=== PATIENT | female | born 1960 | race African-American/Black ===

== ENCOUNTER 2017-12-25 11:27 | Inpatient (IN) | payer OTHER ==
[2017-12-25 12:21] VITALS: BMI 34.5
--- NOTE | 2017-12-25 14:05 | HP ---
Admission [facility] Chief Complaint: I WANT TO GO TO REHAB Allergies/Adverse Reactions: Allergies Allergy/AdvReac Type Severity Reaction Status Date / Time tomato Allergy Severe Hives Verified 12/25/17 13:04 ORANGE JUICE Allergy Severe Hives Uncoded 12/25/17 13:04 NKDA Allergy Uncoded 12/25/17 13:24 History of Present Illness: 57 YEARS OLD FEMALE WITH LONG HISTORY OF ALCOHOL NICOTINE DEPENDENCE HAS ASTHMA AND BORDERLINE HYPERTENSION RIGHT LEG TRAUMA 2013 AMBULATE WITH CANE AT HOME IS ADMITTED TO REHAB Exam Limitations: No Limitations - Ebola screening Have you traveled outside of the country in the last 21 days: No Have you had contact with anyone from an Ebola affected area: No Have you been sick,other than usual withdrawal symptoms: No Do you have a fever: No - Review of Systems Constitutional: Changes in sleep, Weight Stable EENT: reports: Blurred Vision (EYE GLASSES BROKE) Respiratory: reports: SOB with Exertion, Productive cough Cardiac: reports: No Symptoms Reported GI: reports: Indigestion : reports: No Symptoms Reported Musculoskeletal: reports: Joint Pain (RIGHT LEG), Muscle Pain (RIGHT LEG) Integumentary: reports: Change in Color (ECZEMA) Neuro: reports: No Symptoms reported Endocrine: reports: No Symptoms Reported Hematology: reports: No Symptoms Reported Psychiatric: reports: Judgement Intact, Mood/Affect Appropiate, Orientated x3 Other Systems: Reviewed and Negative Patient History - Patient Medical History Hx Anemia: No Hx Asthma: Yes Hx Chronic Obstructive Pulmonary Disease (COPD): No Hx Cancer: No Hx Cardiac Disorders: No Hx Congestive Heart Failure: No Hx Hypertension: Yes Hx Hypercholesterolemia: No Hx Pacemaker: No HX Cerebrovascular Accident: No Hx Seizures: No Hx Dementia: No Hx Diabetes: No Hx Gastrointestinal Disorders: Yes (acid reflux) Hx Liver Disease: No Hx Genitourinary Disorders: No Hx Sexually Transmitted Disorders: No Hx Renal Disease (ESRD): No Hx Thyroid Disease: No Hx Human Immunodeficiency Virus (HIV): No Hx Hepatitis C: No Hx Depression: Yes Hx Suicide Attempt: Yes (pill overdose in 2014) Hx Bipolar Disorder: No Hx Schizophrenia: No - Patient Surgical History Past Surgical History: Yes Hx Neurologic Surgery: No Hx Cataract Extraction: No Hx Cardiac Surgery: No Hx Lung Surgery: No Hx Breast Surgery: No Hx Breast Biopsy: No Hx Abdominal Surgery: No Hx Appendectomy: No Hx Cholecystectomy: No Hx Genitourinary Surgery: No Hx Section: No Hx Orthopedic Surgery: Yes (fx, right knee in 2013) Hx Hysterectomy: No Anesthesia Reaction: No - PPD History Previous Implant?: Yes Documented Results: Negative w/o proof Implanted On Prior R Admission?: No PPD to be Administered?: Yes - Reproductive History Patient is a Female of Child Bearing Age (11 -55 yrs old): Yes Last Menstrual Period: 12/25/16 Patient : No - Smoking Cessation Smoking history: Current every day smoker Have you smoked in the past 12 months: Yes Aproximately how many cigarettes per day: 10 Hx Chewing Tobacco Use: No Initiated information on smoking cessation: Yes 'Breaking Loose' booklet given: 12/25/17 - Substance & Tx. History Hx Alcohol Use: Yes Hx Substance Use: No Substance Use Type: Alcohol Hx Substance Use Treatment: Yes ([facility] 11/2017 DETOX COMPLETED) - Substances Abused Alcohol-vodka Route: Oral Frequency: Daily Amount used: 1/4 gal. Age of first use: 20 Date of Last Use: 12/17/17 Family Disease History - Family Disease History Family Disease History: Diabetes: Brother, Sister, Heart Disease: Brother, Sister, CA: Mother (), Respiratory: Brother, Sister, Other: Father ( /NO CONTACT), Mother Admission Physical Exam S - Vital Signs Vital Signs: Vital Signs - 24 hr 12/25/17 12:14 Temperature 98.9 F Pulse Rate 93 H Respiratory 18 Rate Blood Pressure 131/83 - Physical General Appearance: Yes: Appropriately Dressed, Obese HEENTM: Yes: Hearing grossly Normal, Normocephalic, Normal Voice Respiratory: Yes: Chest Non-Tender, No Respiratory Distress, No Accessory Muscle Use, Wheezing Neck: Yes: Supple, Trachea in good position Breast: Yes: Breasts Symetrical, No Discharge Cardiology: Yes: Regular Rhythm, S1, S2, Tachycardia Abdominal: Yes: Normal Bowel Sounds, Non Tender, Flat Genitourinary: Yes: Within Normal Limits Back: Yes: Normal Inspection Musculoskeletal: Yes: Gait Steady, Muscle Pain (RIGHT LEG) Extremities: Yes: Normal Inspection, Normal Range of Motion, Non-Tender Neurological: Yes: Fully Oriented, Alert, Motor Strength 5/5, Normal Response, Depressed Affect Integumentary: Yes: Warm, Other (ECZEMA) Lymphatic: Yes: Within Normal Limits - Diagnostic (1) Alcohol dependence with uncomplicated withdrawal Current Visit: Yes Status: Acute (2) Nicotine dependence Current Visit: Yes Status: Acute Qualifiers: Nicotine product type: cigarettes Substance use status: in withdrawal Qualified Code(s): F17.213 - Nicotine dependence, cigarettes, with withdrawal (3) Ambulates with cane Current Visit: Yes Status: Chronic (4) Asthma Current Visit: Yes Status: Chronic Qualifiers: Asthma severity: mild Asthma persistence: intermittent Asthma complication type: with status asthmaticus Qualified Code(s): J45.22 - Mild intermittent asthma with status asthmaticus (5) GERD (gastroesophageal reflux disease) Current Visit: Yes Status: Chronic Qualifiers: Esophagitis presence: without esophagitis Qualified Code(s): K21.9 - Gastro -esophageal reflux disease without esophagitis (6) Eczema Current Visit: Yes Status: Chronic Qualifiers: Eczema type: flexural Qualified Code(s): L20.82 - Flexural eczema Cleared for Admission [facility] - Detox or Rehab S Level of Care: Observation Bed Detox Regimen/Protocol: Not Applicable S Breath Alcohol Content Breath Alcohol Content: 0 Urine Pregancy Test - Result Urine Test Results: Negative- NO Line Present Urine Drug Screen - Results Drug Screen Negative: No Urine Drug Screen Results: BZO-Benzodiazepines, TCA-Tricyclic Antidepress
[2017-12-25] MEDS ORDERED: P-EPHED 60MG/TRIPROLIDI 2.5MG TABLET PO PRN (14:07)
[2017-12-25] MEDS ORDERED: MENTHOL/PHENOL 1 EACH UD MM PRN (14:07)
[2017-12-25] MEDS ORDERED: guaiFENesin/D-METHORPHAN HB 10 ML UNIT-DOSE CUPS PO PRN (14:07)
[2017-12-25] MEDS ORDERED: NICOTINE POLACRILEX 2 MG GUM BUC PRN (14:07)
[2017-12-25] MEDS ORDERED: MAGNESIUM CITRATE 300 ML BOTTLE PO PRN (14:07)
[2017-12-25] MEDS ORDERED: MAGNESIUM HYDROX 2400MG/30ML ORAL SUSPENSION 30 ML CUP PO PRN (14:07)
[2017-12-25] MEDS ORDERED: LOPERAMIDE HCL 2 MG CAPSULE PO PRN (14:07)
[2017-12-25] MEDS ORDERED: ALBUTEROL SO4 8 GM HFA INHALER IH PRN (14:09)
--- NOTE | 2017-12-25 14:22 | HP ---
Admission [facility] Allergies/Adverse Reactions: Allergies Allergy/AdvReac Type Severity Reaction Status Date / Time tomato Allergy Severe Hives Verified 12/25/17 13:04 ORANGE JUICE Allergy Severe Hives Uncoded 12/25/17 13:04 NKDA Allergy Uncoded 12/25/17 13:24 - Ebola screening Have you traveled outside of the country in the last 21 days: No Have you had contact with anyone from an Ebola affected area: No Have you been sick,other than usual withdrawal symptoms: No Do you have a fever: No Patient History - Patient Medical History Hx Anemia: No Hx Asthma: Yes Hx Chronic Obstructive Pulmonary Disease (COPD): No Hx Cancer: No Hx Cardiac Disorders: No Hx Congestive Heart Failure: No Hx Hypertension: Yes Hx Hypercholesterolemia: No Hx Pacemaker: No HX Cerebrovascular Accident: No Hx Seizures: No Hx Dementia: No Hx Diabetes: No Hx Gastrointestinal Disorders: Yes (acid reflux) Hx Liver Disease: No Hx Genitourinary Disorders: No Hx Sexually Transmitted Disorders: No Hx Renal Disease (ESRD): No Hx Thyroid Disease: No Hx Human Immunodeficiency Virus (HIV): No Hx Hepatitis C: No Hx Depression: Yes Hx Suicide Attempt: Yes (pill overdose in 2014) Hx Bipolar Disorder: No Hx Schizophrenia: No - Patient Surgical History Past Surgical History: Yes Hx Neurologic Surgery: No Hx Cataract Extraction: No Hx Cardiac Surgery: No Hx Lung Surgery: No Hx Breast Surgery: No Hx Breast Biopsy: No Hx Abdominal Surgery: No Hx Appendectomy: No Hx Cholecystectomy: No Hx Genitourinary Surgery: No Hx Section: No Hx Orthopedic Surgery: Yes (fx, right knee in 2012) Hx Hysterectomy: No Anesthesia Reaction: No - PPD History Previous Implant?: Yes Documented Results: Negative w/o proof Implanted On Prior [facility] Admission?: No - Reproductive History Last Menstrual Period: 12/25/16 Patient : No - Smoking Cessation Smoking history: Current every day smoker Have you smoked in the past 12 months: Yes Aproximately how many cigarettes per day: 10 Hx Chewing Tobacco Use: No Initiated information on smoking cessation: Yes 'Breaking Loose' booklet given: 12/25/17 - Substances Abused Alcohol-vodka Route: Oral Frequency: Daily Amount used: 1/4 gal. Age of first use: 20 Date of Last Use: 12/17/17 Family Disease History - Family Disease History Family Disease History: Diabetes: Brother, Sister, Heart Disease: Brother, Sister, CA: Mother (), Respiratory: Brother, Sister, Other: Father ( /NO CONTACT), Mother Admission Physical Exam [facility] - Vital Signs Vital Signs: Vital Signs - 24 hr 12/25/17 12:14 Temperature 98.9 F Pulse Rate 93 H Respiratory 18 Rate Blood Pressure 131/83 - Diagnostic (1) Alcohol dependence with uncomplicated withdrawal Current Visit: Yes Status: Acute (2) Nicotine dependence Current Visit: Yes Status: Acute Qualifiers: Nicotine product type: cigarettes Substance use status: in withdrawal Qualified Code(s): F17.213 - Nicotine dependence, cigarettes, with withdrawal (3) Ambulates with cane Current Visit: Yes Status: Chronic (4) Asthma Current Visit: Yes Status: Chronic Qualifiers: Asthma severity: mild Asthma persistence: intermittent Asthma complication type: with status asthmaticus Qualified Code(s): J45.22 - Mild intermittent asthma with status asthmaticus (5) GERD (gastroesophageal reflux disease) Current Visit: Yes Status: Chronic Qualifiers: Esophagitis presence: without esophagitis Qualified Code(s): K21.9 - Gastro -esophageal reflux disease without esophagitis (6) Eczema Current Visit: Yes Status: Chronic Qualifiers: Eczema type: flexural Qualified Code(s): L20.82 - Flexural eczema [facility] Breath Alcohol Content Breath Alcohol Content: 0 Urine Pregancy Test - Result Urine Test Results: Negative- NO Line Present Urine Drug Screen - Results Drug Screen Negative: No Urine Drug Screen Results: BZO-Benzodiazepines, TCA-Tricyclic Antidepress Inpatient Rehab Admission - Initial Determination Are CD services needed?: Yes Free of communicable disease: Yes Not in need of hospitalization: Yes - Rehab Admission Criteria Previous failed treatment: Yes Poor recovery environment: Yes Comorbidities: Yes Lacks judgement: No Patient is meeting Inpatient Rehab admission criteria:: Yes
[2017-12-25 17:19] LABS: HEMATOCRIT 48.1 % (32.4-45.2); MCHC 33.2 g/dl (32.0-36.0); MEAN CELL VOLUME 87.5 fl (80-96); MEAN PLT VOLUME 10.2 fl (7.5-11.1); PLATELET COUNT 238 K/MM3 (134-434); RDW 16.4 % (11.6-15.6); WHITE BLOOD COUNT 7.9 K/mm3 (4.0-10.0)
[2017-12-25 17:43] LABS: ALBUMIN 4.1 g/dl (3.4-5.0); ALK PHOS 130 U/L (45-117); ANION GAP 9 (8-16); BILIRUBIN,TOTAL 0.4 mg/dL (0.2-1.0); BLOOD UREA NITROGEN 11 mg/dL (7-18); CALCIUM 10.1 mg/dL (8.5-10.1); CHLORIDE 104 mmol/L (98-107); CO2 27 mmol/L (21-32); CREATININE 0.9 mg/dL (0.55-1.02); GLUCOSE,RANDOM 134 mg/dL (74-106); POTASSIUM 5.2 mmol/L (3.5-5.1); SGOT/AST 19 U/L (15-37); SGPT/ALT 38 U/L (12-78); SODIUM 140 mmol/L (136-145); TOT PROT 7.8 g/dl (6.4-8.2)
[2017-12-25] MEDS ORDERED: TUBERCULIN PPD 5 TU/0.1ML VIAL ID ONE (19:23)
[2017-12-25] MEDS: TRIAMCINOLONE ACET 0.1% OINT 15 GM TUBE TP SCH ×2 (19:30→22:15)
[2017-12-25] MEDS ORDERED: diphenhydrAMINE HCL 25 MG CAPSULE (FP) PO PRN (21:37)
[2017-12-25] MEDS: NICOTINE 14 MG/24 HOURS TOPICAL PATCH TD SCH (22:09)
[2017-12-25] MEDS: ARIPiprazole 5 MG TABLET (FP) PO SCH (22:12)
[2017-12-25] MEDS: THIAMINE HCL 100 MG TABLET (FP) PO SCH (22:13)
[2017-12-25] MEDS: ACETAMINOPHEN 325 MG TABLET (FP) PO PRN (22:13)
[2017-12-25] MEDS: RANITIDINE HCL 150 MG TABLET (FP) PO SCH (22:13)
[2017-12-26] MEDS: MELATONIN 5 MG TABLETS PO PRN (02:03)
[2017-12-26] MEDS: TRIAMCINOLONE ACET 0.1% OINT 15 GM TUBE TP SCH ×4 (09:39→22:03)
[2017-12-26] MEDS: NICOTINE 14 MG/24 HOURS TOPICAL PATCH TD SCH (09:39)
[2017-12-26] MEDS: PRENATAL VITAMINS W/ FOLIC ACID TABLET (FP) PO SCH (09:39)
[2017-12-26] MEDS: RANITIDINE HCL 150 MG TABLET (FP) PO SCH ×2 (09:40→22:02)
[2017-12-26] MEDS ORDERED: PT OWN MED DRAWER 7, Y5N ONE (13:05)
--- NOTE | 2017-12-26 14:17 | PN ---
[facility] Progress Note Note: Vital Signs Temperature 97.6 F 12/26/17 07:10 Pulse Rate 97 H 12/26/17 09:40 Respiratory Rate 18 12/26/17 07:10 Blood Pressure 121/86 12/26/17 09:40 O2 Sat by Pulse Oximetry (%) Laboratory Last Values WBC 7.9 K/mm3 (4.0-10.0) 12/25/17 15:00 RBC 5.50 M/mm3 (3.60-5.2) H 12/25/17 15:00 Hgb 16.0 GM/dL (10.7-15.3) H 12/25/17 15:00 Hct 48.1 % (32.4-45.2) H 12/25/17 15:00 MCV 87.5 fl (80-96) 12/25/17 15:00 MCH 29.0 pg (25.7-33.7) 12/25/17 15:00 MCHC 33.2 g/dl (32.0-36.0) 12/25/17 15:00 RDW 16.4 % (11.6-15.6) H 12/25/17 15:00 Plt Count 238 K/MM3 (134-434) 12/25/17 15:00 MPV 10.2 fl (7.5-11.1) 12/25/17 15:00 Sodium 140 mmol/L (136-145) 12/25/17 15:00 Potassium 5.2 mmol/L (3.5-5.1) H 12/25/17 15:00 Chloride 104 mmol/L (98-107) 12/25/17 15:00 Carbon Dioxide 27 mmol/L (21-32) 12/25/17 15:00 Anion Gap 9 (8-16) 12/25/17 15:00 BUN 11 mg/dL (7-18) 12/25/17 15:00 Creatinine 0.9 mg/dL (0.55-1.02) 12/25/17 15:00 Creat Clearance w eGFR > 60 (>60) 12/25/17 15:00 Random Glucose 134 mg/dL (74-106) H 12/25/17 15:00 Calcium 10.1 mg/dL (8.5-10.1) 12/25/17 15:00 Total Bilirubin 0.4 mg/dL (0.2-1.0) 12/25/17 15:00 AST 19 U/L (15-37) 12/25/17 15:00 ALT 38 U/L (12-78) 12/25/17 15:00 Alkaline Phosphatase 130 U/L (45-117) H 12/25/17 15:00 Total Protein 7.8 g/dl (6.4-8.2) 12/25/17 15:00 Albumin 4.1 g/dl (3.4-5.0) 12/25/17 15:00 RPR Titer Nonreactive (NONREACTIVE) 12/25/17 15:00 mild K+ elevation asymptomatic repeat K+ in AM continue to monitor
[2017-12-26 15:40] LABS: URINE APPEARANCE CLEAR; URINE BILIRUBIN NEGATIVE (<2.0 mg/dL); URINE COLOR LTYELLOW; URINE GLUCOSE (UA) 2+ (NEGATIVE); URINE KETONE NEGATIVE (NEGATIVE); URINE LEUK ESTERASE NEGATIVE (NEGATIVE); URINE NITRITE NEGATIVE (NEGATIVE); URINE PROTEIN NEGATIVE (NEGATIVE); URINE UROBILINOGEN NEGATIVE mg/dL (0.2-1.0)
--- NOTE | 2017-12-26 17:06 | EKG ---
Test Reason : Blood Pressure : / mmHG Vent. Rate : 103 BPM Atrial Rate : 103 BPM P-R Int : 134 ms QRS Dur : 074 ms QT Int : 356 ms P-R-T Axes : 052 020 040 degrees QTc Int : 466 ms POOR DATA QUALITY, INTERPRETATION MAY BE ADVERSELY AFFECTED SINUS TACHYCARDIA POSSIBLE LEFT ATRIAL ENLARGEMENT BORDERLINE ECG NO PREVIOUS ECGS AVAILABLE Confirmed by MD Rowena, Michoacano ([id number]) on 12/26/2017 5:06:31 PM Referred By: Confirmed By:Michoacano Guaman MD
[2017-12-26] MEDS: THIAMINE HCL 100 MG TABLET (FP) PO SCH (22:02)
[2017-12-26] MEDS: ARIPiprazole 5 MG TABLET (FP) PO SCH (22:02)
[2017-12-26] MEDS: MAG HYDROX/AL HYDROX/SIMETH 30 ML UNIT-DOSE CUP PO PRN (22:03)
[2017-12-27] MEDS: TRIAMCINOLONE ACET 0.1% OINT 15 GM TUBE TP SCH ×4 (09:54→21:13)
[2017-12-27] MEDS: NICOTINE 14 MG/24 HOURS TOPICAL PATCH TD SCH (09:55)
[2017-12-27] MEDS: RANITIDINE HCL 150 MG TABLET (FP) PO SCH ×2 (09:55→21:12)
[2017-12-27] MEDS: PRENATAL VITAMINS W/ FOLIC ACID TABLET (FP) PO SCH (09:55)
--- NOTE | 2017-12-27 10:47 | EKG ---
Test Reason : Blood Pressure : / mmHG Vent. Rate : 091 BPM Atrial Rate : 091 BPM P-R Int : 154 ms QRS Dur : 082 ms QT Int : 372 ms P-R-T Axes : 058 019 044 degrees QTc Int : 457 ms NORMAL SINUS RHYTHM CANNOT RULE OUT ANTERIOR INFARCT , AGE UNDETERMINED ABNORMAL ECG WHEN COMPARED WITH ECG OF 25-DEC-2017 19:05, NO SIGNIFICANT CHANGE WAS FOUND Confirmed by CORDELL DUONG, LEAH ([id number]) on 12/27/2017 10:46:39 AM Referred By: Confirmed By:LEAH LANDA MD
--- NOTE | 2017-12-27 13:18 | PN ---
[facility] Progress Note Note: Vital Signs Temperature 97.5 F L 12/27/17 07:34 Pulse Rate 98 H 12/27/17 07:34 Respiratory Rate 18 12/27/17 07:34 Blood Pressure 121/79 12/27/17 07:34 O2 Sat by Pulse Oximetry (%) Laboratory Last Values WBC 7.9 K/mm3 (4.0-10.0) 12/25/17 15:00 RBC 5.50 M/mm3 (3.60-5.2) H 12/25/17 15:00 Hgb 16.0 GM/dL (10.7-15.3) H 12/25/17 15:00 Hct 48.1 % (32.4-45.2) H 12/25/17 15:00 MCV 87.5 fl (80-96) 12/25/17 15:00 MCH 29.0 pg (25.7-33.7) 12/25/17 15:00 MCHC 33.2 g/dl (32.0-36.0) 12/25/17 15:00 RDW 16.4 % (11.6-15.6) H 12/25/17 15:00 Plt Count 238 K/MM3 (134-434) 12/25/17 15:00 MPV 10.2 fl (7.5-11.1) 12/25/17 15:00 Sodium 140 mmol/L (136-145) 12/25/17 15:00 Potassium 4.5 mmol/L (3.5-5.1) 12/27/17 08:30 Chloride 104 mmol/L (98-107) 12/25/17 15:00 Carbon Dioxide 27 mmol/L (21-32) 12/25/17 15:00 Anion Gap 9 (8-16) 12/25/17 15:00 BUN 11 mg/dL (7-18) 12/25/17 15:00 Creatinine 0.9 mg/dL (0.55-1.02) 12/25/17 15:00 Creat Clearance w eGFR > 60 (>60) 12/25/17 15:00 Random Glucose 134 mg/dL (74-106) H 12/25/17 15:00 Calcium 10.1 mg/dL (8.5-10.1) 12/25/17 15:00 Total Bilirubin 0.4 mg/dL (0.2-1.0) 12/25/17 15:00 AST 19 U/L (15-37) 12/25/17 15:00 ALT 38 U/L (12-78) 12/25/17 15:00 Alkaline Phosphatase 130 U/L (45-117) H 12/25/17 15:00 Total Protein 7.8 g/dl (6.4-8.2) 12/25/17 15:00 Albumin 4.1 g/dl (3.4-5.0) 12/25/17 15:00 Urine Color Ltyellow 12/26/17 12:30 Urine Appearance Clear 12/26/17 12:30 Urine pH 6.0 (5.0-8.0) 12/26/17 12:30 Ur Specific [place] 1.014 (1.001-1.035) 12/26/17 12:30 Urine Protein Negative (NEGATIVE) 12/26/17 12:30 Urine Glucose (UA) 2+ (NEGATIVE) H 12/26/17 12:30 Urine Ketones Negative (NEGATIVE) 12/26/17 12:30 Urine Blood Negative (NEGATIVE) 12/26/17 12:30 Urine Nitrite Negative (NEGATIVE) 12/26/17 12:30 Urine Bilirubin Negative (<2.0 mg/dL) 12/26/17 12:30 Urine Urobilinogen Negative mg/dL (0.2-1.0) 12/26/17 12:30 Ur Leukocyte Esterase Negative (NEGATIVE) 12/26/17 12:30 RPR Titer Nonreactive (NONREACTIVE) 12/25/17 15:00 Labs reviewed K+ stable Patient stable continue to monitor
[2017-12-27] MEDS: diphenhydrAMINE HCL 50 MG CAPSULE PO PRN (21:12)
[2017-12-27] MEDS: ARIPiprazole 5 MG TABLET (FP) PO SCH (21:12)
[2017-12-27] MEDS: THIAMINE HCL 100 MG TABLET (FP) PO SCH (21:36)
[2017-12-27] MEDS: ACETAMINOPHEN 325 MG TABLET (FP) PO PRN (21:37)
[2017-12-27] MEDS: MAG HYDROX/AL HYDROX/SIMETH 30 ML UNIT-DOSE CUP PO PRN (21:37)
[2017-12-28] MEDS: ACETAMINOPHEN 325 MG TABLET (FP) PO PRN ×2 (08:59→21:56)
[2017-12-28] MEDS: NICOTINE 14 MG/24 HOURS TOPICAL PATCH TD SCH (09:00)
[2017-12-28] MEDS: PRENATAL VITAMINS W/ FOLIC ACID TABLET (FP) PO SCH (09:00)
[2017-12-28] MEDS: RANITIDINE HCL 150 MG TABLET (FP) PO SCH ×2 (09:00→21:25)
[2017-12-28] MEDS: TRIAMCINOLONE ACET 0.1% OINT 15 GM TUBE TP SCH ×4 (09:01→21:25)
--- NOTE | 2017-12-28 13:59 | PN ---
S Progress Note Note: Vital Signs (72 hours) 12/26/17 12/26/17 12/26/17 00:30 03:30 07:10 Temperature 97.6 F Pulse Rate 94 H Respiratory 18 18 18 Rate Blood Pressure 115/78 12/26/17 12/27/17 12/27/17 09:40 03:30 07:34 Temperature 97.5 F L Pulse Rate 97 H 98 H Respiratory 18 18 Rate Blood Pressure 121/86 121/79 12/28/17 12/28/17 12/28/17 00:30 07:31 09:16 Temperature 97.5 F L Pulse Rate 98 H 111 H Respiratory 18 18 Rate Blood Pressure 134/92 126/89 Patient reported taking BP meds out patient but did not recall dosage slight elevation in diastolic BP med hx reviewed patient was lossartan 100 mg qd start lossartan 25 mg tomorrow dose will be adjusted as needed continue to monitor
[2017-12-28] MEDS: diphenhydrAMINE HCL 50 MG CAPSULE PO PRN (21:25)
[2017-12-28] MEDS: THIAMINE HCL 100 MG TABLET (FP) PO SCH (21:25)
[2017-12-28] MEDS: ARIPiprazole 5 MG TABLET (FP) PO SCH (21:25)
[2017-12-28] MEDS: MELATONIN 5 MG TABLETS PO PRN (21:26)
[2017-12-28] MEDS: MAG HYDROX/AL HYDROX/SIMETH 30 ML UNIT-DOSE CUP PO PRN (21:57)
[2017-12-29] MEDS ORDERED: PT OWN MED DRAWER 7, Y5N ONE (08:41)
[2017-12-29] MEDS: NICOTINE 14 MG/24 HOURS TOPICAL PATCH TD SCH (10:15)
[2017-12-29] MEDS: RANITIDINE HCL 150 MG TABLET (FP) PO SCH ×2 (10:16→21:38)
[2017-12-29] MEDS: PRENATAL VITAMINS W/ FOLIC ACID TABLET (FP) PO SCH (10:16)
[2017-12-29] MEDS: TRIAMCINOLONE ACET 0.1% OINT 15 GM TUBE TP SCH ×4 (10:18→22:16)
[2017-12-29] MEDS: LOSARTAN POTASSIUM 25 MG TABLET PO SCH (10:18)
[2017-12-29] MEDS: ARIPiprazole 5 MG TABLET (FP) PO SCH (21:38)
[2017-12-29] MEDS: THIAMINE HCL 100 MG TABLET (FP) PO SCH (21:38)
[2017-12-29] MEDS: ACETAMINOPHEN 325 MG TABLET (FP) PO PRN (21:39)
[2017-12-30] MEDS ORDERED: PT OWN MED DRAWER 7, Y5N ONE ×2 (08:57→13:57)
[2017-12-30] MEDS: TRIAMCINOLONE ACET 0.1% OINT 15 GM TUBE TP SCH ×4 (09:46→21:31)
[2017-12-30] MEDS: LOSARTAN POTASSIUM 25 MG TABLET PO SCH (09:46)
[2017-12-30] MEDS: PRENATAL VITAMINS W/ FOLIC ACID TABLET (FP) PO SCH (09:46)
[2017-12-30] MEDS: RANITIDINE HCL 150 MG TABLET (FP) PO SCH ×2 (09:46→21:30)
[2017-12-30] MEDS: NICOTINE 14 MG/24 HOURS TOPICAL PATCH TD SCH (09:47)
[2017-12-30] MEDS: ACETAMINOPHEN 325 MG TABLET (FP) PO PRN ×2 (09:48→21:32)
[2017-12-30] MEDS: ARIPiprazole 5 MG TABLET (FP) PO SCH (21:30)
[2017-12-30] MEDS: THIAMINE HCL 100 MG TABLET (FP) PO SCH (21:30)
[2017-12-30] MEDS: diphenhydrAMINE HCL 50 MG CAPSULE PO PRN (21:30)
[2017-12-31] MEDS: LOSARTAN POTASSIUM 25 MG TABLET PO SCH (10:17)
[2017-12-31] MEDS: PRENATAL VITAMINS W/ FOLIC ACID TABLET (FP) PO SCH (10:17)
[2017-12-31] MEDS: RANITIDINE HCL 150 MG TABLET (FP) PO SCH ×2 (10:17→21:32)
[2017-12-31] MEDS: NICOTINE 14 MG/24 HOURS TOPICAL PATCH TD SCH (10:17)
[2017-12-31] MEDS: TRIAMCINOLONE ACET 0.1% OINT 15 GM TUBE TP SCH ×4 (10:18→21:33)
[2017-12-31] MEDS: ACETAMINOPHEN 325 MG TABLET (FP) PO PRN ×2 (10:20→21:31)
[2017-12-31] MEDS: THIAMINE HCL 100 MG TABLET (FP) PO SCH (21:32)
[2017-12-31] MEDS: diphenhydrAMINE HCL 50 MG CAPSULE PO PRN (21:32)
[2017-12-31] MEDS: ARIPiprazole 5 MG TABLET (FP) PO SCH (21:32)
[2018-01-01] MEDS ORDERED: PT OWN MED DRAWER 7, Y5N ONE ×2 (08:40→13:18)
[2018-01-01] MEDS: NICOTINE 14 MG/24 HOURS TOPICAL PATCH TD SCH (10:20)
[2018-01-01] MEDS: RANITIDINE HCL 150 MG TABLET (FP) PO SCH ×2 (10:21→21:28)
[2018-01-01] MEDS: PRENATAL VITAMINS W/ FOLIC ACID TABLET (FP) PO SCH (10:21)
[2018-01-01] MEDS: LOSARTAN POTASSIUM 25 MG TABLET PO SCH (10:21)
[2018-01-01] MEDS: ACETAMINOPHEN 325 MG TABLET (FP) PO PRN ×2 (10:22→21:32)
[2018-01-01] MEDS: TRIAMCINOLONE ACET 0.1% OINT 15 GM TUBE TP SCH ×4 (10:23→21:28)
--- NOTE | 2018-01-01 10:44 | HP ---
Psychiatrist Admission - Data Date of interview: 12/27/17 Admission source: [facility] Identifying data: This is the first admission to [address] [place] [address] for this 57 years old female AA single mother of 4 grown children ,resides alone,supported by [facility]. Psychiatric History: First contact with psychiatrist was in 2013 when she was admitted to [facility] after DOD.She was dx with Bipolar disorder.Patient reports a few suicidal attempts(DOD),nothing recently.Patient sees psychiatrist at [facility] program in the [place].Current meds:Abilify 10 mg po hs, Ambien 10 mg po hs. Physical/Sexual Abuse/Trauma History: denies Vital Signs: Vital Signs - 24 hr 01/01/18 01/01/18 01/01/18 03:30 07:21 09:36 Temperature 97.8 F Pulse Rate 97 H 110 H Respiratory 18 18 Rate Blood Pressure 129/90 130/87 Allergies/Adverse Reactions: Allergies Allergy/AdvReac Type Severity Reaction Status Date / Time tomato Allergy Severe Hives Verified 12/25/17 13:04 No Known Drug Allergies Allergy Unknown Verified 12/25/17 14:51 ORANGE JUICE Allergy Severe Hives Uncoded 12/25/17 13:04 NKDA Allergy Uncoded 12/25/17 13:24 Date of last physical exam: 12/25/17 Concur with the findings of this exam: Yes - Substance Abuse/Tx History Hx Alcohol Use: Yes (drinking since 20 yo) Hx Substance Use: Yes (cocaine stopped 8 yo,Xanax since about 8 yo) Substance Use Type: Alcohol, Cocaine, Tranquilizers Hx Substance Use Treatment: Yes (completed inpatient rehab [facility] 7 yo) Mental Status Exam - Mental Status Exam Alert and Oriented to: Time, Place, Person Cognitive Function: Grossly Intact Patient Appearance: Well Groomed Mood: Anxious Affect: Mood Congruent, Labile Patient Behavior: Cooperative Speech Pattern: Clear Voice Loudness: Normal Thought Process: Goal Oriented Thought Disorder: Being Controlled Hallucinations: Denies Suicidal Ideation: Denies Homicidal Ideation: Denies Insight/Judgement: Fair Sleep: Fair Appetite: Good Muscle strength/Tone: Normal Gait/Station: Normal Psychiatric Findings - Problem List ([place] 1, 2,3) (1) Alcohol dependence with uncomplicated withdrawal Current Visit: Yes Status: Chronic (2) Nicotine dependence Current Visit: Yes Status: Chronic Qualifiers: Nicotine product type: cigarettes Substance use status: in withdrawal Qualified Code(s): F17.213 - Nicotine dependence, cigarettes, with withdrawal (3) Ambulates with cane Current Visit: Yes Status: Chronic (4) Asthma Current Visit: Yes Status: Chronic Qualifiers: Asthma severity: mild Asthma persistence: intermittent Asthma complication type: with status asthmaticus Qualified Code(s): J45.22 - Mild intermittent asthma with status asthmaticus (5) Eczema Current Visit: Yes Status: Chronic Qualifiers: Eczema type: flexural Qualified Code(s): L20.82 - Flexural eczema (6) GERD (gastroesophageal reflux disease) Current Visit: Yes Status: Chronic Qualifiers: Esophagitis presence: without esophagitis Qualified Code(s): K21.9 - Gastro -esophageal reflux disease without esophagitis (7) Bipolar disorder Current Visit: Yes Status: Chronic (8) Chronic arthritis Current Visit: Yes Status: Chronic - Initial Treatment Plan Initial Treatment Plan: Continue Abilify 10 mg po hs. will monitor progress.
[2018-01-01] MEDS: THIAMINE HCL 100 MG TABLET (FP) PO SCH (21:27)
[2018-01-01] MEDS: ARIPiprazole 5 MG TABLET (FP) PO SCH (21:28)
[2018-01-01] MEDS: diphenhydrAMINE HCL 50 MG CAPSULE PO PRN (21:32)
[2018-01-01] MEDS: MELATONIN 5 MG TABLETS PO PRN (23:30)
[2018-01-02] MEDS: PRENATAL VITAMINS W/ FOLIC ACID TABLET (FP) PO SCH (10:05)
[2018-01-02] MEDS: NICOTINE 14 MG/24 HOURS TOPICAL PATCH TD SCH (10:05)
[2018-01-02] MEDS: RANITIDINE HCL 150 MG TABLET (FP) PO SCH ×2 (10:05→21:09)
[2018-01-02] MEDS ORDERED: PT OWN MED DRAWER 7, Y5N ONE (10:06)
[2018-01-02] MEDS: LOSARTAN POTASSIUM 25 MG TABLET PO SCH (10:07)
[2018-01-02] MEDS: ACETAMINOPHEN 325 MG TABLET (FP) PO PRN (10:07)
[2018-01-02] MEDS: TRIAMCINOLONE ACET 0.1% OINT 15 GM TUBE TP SCH ×4 (10:08→21:34)
--- NOTE | 2018-01-02 13:59 | PN ---
[facility] Progress Note Note: Vital Signs Temperature 97.8 F 01/02/18 06:55 Pulse Rate 104 H 01/02/18 09:20 Respiratory Rate 18 01/02/18 09:20 Blood Pressure 116/83 01/02/18 09:20 O2 Sat by Pulse Oximetry (%) Laboratory Last Values WBC 7.9 K/mm3 (4.0-10.0) 12/25/17 15:00 RBC 5.50 M/mm3 (3.60-5.2) H 12/25/17 15:00 Hgb 16.0 GM/dL (10.7-15.3) H 12/25/17 15:00 Hct 48.1 % (32.4-45.2) H 12/25/17 15:00 MCV 87.5 fl (80-96) 12/25/17 15:00 MCH 29.0 pg (25.7-33.7) 12/25/17 15:00 MCHC 33.2 g/dl (32.0-36.0) 12/25/17 15:00 RDW 16.4 % (11.6-15.6) H 12/25/17 15:00 Plt Count 238 K/MM3 (134-434) 12/25/17 15:00 MPV 10.2 fl (7.5-11.1) 12/25/17 15:00 Sodium 140 mmol/L (136-145) 12/25/17 15:00 Potassium 4.5 mmol/L (3.5-5.1) 12/27/17 08:30 Chloride 104 mmol/L (98-107) 12/25/17 15:00 Carbon Dioxide 27 mmol/L (21-32) 12/25/17 15:00 Anion Gap 9 (8-16) 12/25/17 15:00 BUN 11 mg/dL (7-18) 12/25/17 15:00 Creatinine 0.9 mg/dL (0.55-1.02) 12/25/17 15:00 Creat Clearance w eGFR > 60 (>60) 12/25/17 15:00 Random Glucose 134 mg/dL (74-106) H 12/25/17 15:00 Calcium 10.1 mg/dL (8.5-10.1) 12/25/17 15:00 Total Bilirubin 0.4 mg/dL (0.2-1.0) 12/25/17 15:00 AST 19 U/L (15-37) 12/25/17 15:00 ALT 38 U/L (12-78) 12/25/17 15:00 Alkaline Phosphatase 130 U/L (45-117) H 12/25/17 15:00 Total Protein 7.8 g/dl (6.4-8.2) 12/25/17 15:00 Albumin 4.1 g/dl (3.4-5.0) 12/25/17 15:00 Urine Color Ltyellow 12/26/17 12:30 Urine Appearance Clear 12/26/17 12:30 Urine pH 6.0 (5.0-8.0) 12/26/17 12:30 Ur Specific [place] 1.014 (1.001-1.035) 12/26/17 12:30 Urine Protein Negative (NEGATIVE) 12/26/17 12:30 Urine Glucose (UA) 2+ (NEGATIVE) H 12/26/17 12:30 Urine Ketones Negative (NEGATIVE) 12/26/17 12:30 Urine Blood Negative (NEGATIVE) 12/26/17 12:30 Urine Nitrite Negative (NEGATIVE) 12/26/17 12:30 Urine Bilirubin Negative (<2.0 mg/dL) 12/26/17 12:30 Urine Urobilinogen Negative mg/dL (0.2-1.0) 12/26/17 12:30 Ur Leukocyte Esterase Negative (NEGATIVE) 12/26/17 12:30 RPR Titer Nonreactive (NONREACTIVE) 12/25/17 15:00 c/o of pain with small abscess on the right buttocks. A/P AOx3 no distress +tenderness abscess appx 1cm right buttocks full ROM, ambulating independently bacitracin top BID warm compress continue to monitor
[2018-01-02] MEDS: BACITRACIN 0.9 GM PACKET TP SCH ×2 (16:00→21:09)
[2018-01-02] MEDS: ARIPiprazole 5 MG TABLET (FP) PO SCH (21:09)
[2018-01-02] MEDS: AMITRIPTYLINE HCL 25 MG TABLET (FP) PO SCH (21:09)
[2018-01-02] MEDS: THIAMINE HCL 100 MG TABLET (FP) PO SCH (21:09)
[2018-01-02] MEDS: diphenhydrAMINE HCL 50 MG CAPSULE PO PRN (21:11)
[2018-01-03] MEDS ORDERED: PT OWN MED DRAWER 7, Y5N ONE (08:34)
[2018-01-03] MEDS: RANITIDINE HCL 150 MG TABLET (FP) PO SCH ×2 (09:52→21:32)
[2018-01-03] MEDS: TRIAMCINOLONE ACET 0.1% OINT 15 GM TUBE TP SCH ×4 (09:52→21:32)
[2018-01-03] MEDS: BACITRACIN 0.9 GM PACKET TP SCH ×2 (09:52→21:31)
[2018-01-03] MEDS: LOSARTAN POTASSIUM 25 MG TABLET PO SCH (09:53)
[2018-01-03] MEDS: NICOTINE 14 MG/24 HOURS TOPICAL PATCH TD SCH (09:53)
[2018-01-03] MEDS: PRENATAL VITAMINS W/ FOLIC ACID TABLET (FP) PO SCH (09:53)
[2018-01-03] MEDS: ACETAMINOPHEN 325 MG TABLET (FP) PO PRN ×3 (09:54→21:34)
[2018-01-03] MEDS: AMITRIPTYLINE HCL 25 MG TABLET (FP) PO SCH (21:31)
[2018-01-03] MEDS: THIAMINE HCL 100 MG TABLET (FP) PO SCH (21:31)
[2018-01-03] MEDS: ARIPiprazole 5 MG TABLET (FP) PO SCH (21:32)
[2018-01-04] MEDS: PRENATAL VITAMINS W/ FOLIC ACID TABLET (FP) PO SCH (09:58)
[2018-01-04] MEDS: BACITRACIN 0.9 GM PACKET TP SCH ×2 (09:58→21:19)
[2018-01-04] MEDS: LOSARTAN POTASSIUM 25 MG TABLET PO SCH (09:58)
[2018-01-04] MEDS: TRIAMCINOLONE ACET 0.1% OINT 15 GM TUBE TP SCH ×4 (09:58→21:20)
[2018-01-04] MEDS: RANITIDINE HCL 150 MG TABLET (FP) PO SCH ×2 (09:59→21:20)
[2018-01-04] MEDS: ACETAMINOPHEN 325 MG TABLET (FP) PO PRN ×2 (09:59→21:21)
[2018-01-04] MEDS: NICOTINE 14 MG/24 HOURS TOPICAL PATCH TD SCH (09:59)
[2018-01-04] MEDS: ARIPiprazole 5 MG TABLET (FP) PO SCH (21:19)
[2018-01-04] MEDS: THIAMINE HCL 100 MG TABLET (FP) PO SCH (21:20)
[2018-01-04] MEDS: AMITRIPTYLINE HCL 25 MG TABLET (FP) PO SCH (21:20)
[2018-01-05 07:16] VITALS: BP 128/88; PULSE 96; TEMP 97.8
--- NOTE | 2018-01-05 09:05 | PN ---
Psychiatric Progress Note Vital Signs: Vital Signs Period Temp Pulse Resp BP Sys/Odell Pulse Ox Last 24 Hr 97.8 F-98.1 F 96-112 18-18 128-143/81-88 Date of Session: 01/05/18 Chief Complaint:: Discharge visit HPI: Patient addressed Alcohol dependence comorbid with Bipolar disorder. ROS: BA,Eczema,GERD.Chronic arthritis. Current Medications: Active Medications Generic Name Dose Route Start Last Admin Trade Name Freq PRN Reason Stop Dose Admin Acetaminophen 650 mg 12/25/17 14:07 01/04/18 21:21 Tylenol - PO 650 mg Q4H PRN Administration FEVER Al Hydroxide/Mg Hydroxide 30 ml 12/25/17 14:07 12/28/17 21:57 Mylanta Oral Suspension - PO 30 ml Q6H PRN Administration DYSPEPSIA Albuterol Sulfate 2 puff 12/25/17 14:09 Ventolin Hfa Inhaler - IH Q4H PRN ASTHMA Amitriptyline HCl 50 mg 01/02/18 22:00 01/04/18 21:20 Elavil - PO 50 mg HS SUIZ Administration Aripiprazole 10 mg 12/25/17 22:00 01/04/18 21:19 Abilify PO 10 mg HS SUZI Administration Bacitracin 0.9 gm 01/02/18 14:00 01/04/18 21:19 Bacitracin - TP 0.9 gm BID SUZI Administration Diphenhydramine HCl 50 mg 12/26/17 17:06 01/02/18 21:11 Benadryl - PO 50 mg HS PRN Administration INSOMNIA Eucalyptus/Menthol/Phenol/Sorbitol 1 each 12/25/17 14:07 Cepastat Lozenge - MM Q4H PRN SORE THROAT Guaifenesin 10 ml 12/25/17 14:07 Robitussin Dm - PO Q6H PRN COUGH Loperamide HCl 4 mg 12/25/17 14:07 Imodium - PO Q6H PRN DIARRHEA Losartan Potassium 25 mg 12/29/17 10:00 01/04/18 09:58 Cozaar - PO 25 mg DAILY SUZI Administration Magnesium Citrate 300 ml 12/25/17 14:07 Citroma - PO Q48H PRN CONSTIPATION Magnesium Hydroxide 30 ml 12/25/17 14:07 12/31/17 19:49 Milk Of Magnesia - PO 30 ml DAILY PRN Administration CONSTIPATION Melatonin 5 mg 12/25/17 22:00 01/01/18 23:30 Melatonin PO 5 mg HS PRN Administration INSOMNIA Nicotine 14 mg 12/25/17 15:00 01/04/18 09:59 Nicoderm Patch - TD 14 mg DAILY SUZI Administration Nicotine Polacrilex 2 mg 12/25/17 14:07 Nicorette Gum - BUC Q2H PRN NICOTINE REPLACEMENT RX Multivit/Folic Acid/Iron 1 tab 12/26/17 10:00 01/04/18 09:58 Vitamins (Sjr) - PO 1 tab DAILY SUZI Administration Pseudoephedrine/Triprolidine 1 combo 12/25/17 14:07 Actifed - PO TID PRN NASAL CONGESTION Ranitidine HCl 150 mg 12/25/17 22:00 01/04/18 21:20 Zantac - PO 150 mg BID SUZI Administration Thiamine HCl 100 mg 12/25/17 22:00 01/04/18 21:20 Vitamin B1 - PO 100 mg HS SUZI Administration Triamcinolone Acetonide 1 applic 12/25/17 18:00 01/04/18 21:20 Aristocort 0.1% Ointment - TP Not Given QID SUZI Current Side Effect: No Lab tests ordered: No Lab tests reviewed: Yes Provider note:: Patient completed this program today.She has met her treatment goals and will continue to address her issues at [facility] in the [place] .patient continue to find that current medications : Abilify 10 mg po daily and Elavil 50 mg po hs help to cope with anxiety,mood instability,depression,insomnia.Scripts for 30 days provided. Suportive therapy provided focusing on relapse prevention. Patient is stable for discharge today. Total face to face time:: 30 Mental Status Exam - Mental Status Exam Alert and Oriented to: Time, Place, Person Cognitive Function: Grossly Intact Patient Appearance: Well Groomed Mood: Hopeful, Euthymic Affect: Appropriate, Mood Congruent Patient Behavior: Cooperative Speech Pattern: Clear Voice Loudness: Normal Thought Process: Goal Oriented Thought Disorder: Not Present Hallucinations: Denies Suicidal Ideation: Denies Homicidal Ideation: Denies Insight/Judgement: Fair Sleep: Fair Appetite: Good Muscle strength/Tone: Normal Gait/Station: Normal Psychiatric Treatment Plan - Problem List (1) Alcohol dependence with uncomplicated withdrawal Current Visit: Yes (2) Nicotine dependence Current Visit: Yes Qualifiers: Nicotine product type: cigarettes Substance use status: in withdrawal Qualified Code(s): F17.213 - Nicotine dependence, cigarettes, with withdrawal (3) Ambulates with cane Current Visit: Yes (4) Asthma Current Visit: Yes Qualifiers: Asthma severity: mild Asthma persistence: intermittent Asthma complication type: with status asthmaticus Qualified Code(s): J45.22 - Mild intermittent asthma with status asthmaticus (5) Eczema Current Visit: Yes Qualifiers: Eczema type: flexural Qualified Code(s): L20.82 - Flexural eczema (6) GERD (gastroesophageal reflux disease) Current Visit: Yes Qualifiers: Esophagitis presence: without esophagitis Qualified Code(s): K21.9 - Gastro -esophageal reflux disease without esophagitis (7) Bipolar disorder Current Visit: Yes (8) Chronic arthritis Current Visit: Yes
== END 2018-01-05 08:53 | disposition home or self-care (01) | DRG 772 ==
LOC: YASAS 11:27 → Y3E 14:33
PROVIDERS: ADMIT Psychiatry & Neurology Psychiatry; ATTEND Psychiatry & Neurology Psychiatry
PROC: HZ42ZZZ Group Counseling for Substance Abuse Treatment, Cognitive-Behavioral (ICD-10-PCS; principal; 2017-12-25)
DX: F10.20 Alcohol dependence, uncomplicated (principal); F17.213 Nicotine dependence, cigarettes, with withdrawal; F31.9 Bipolar disorder, unspecified; J45.22 Mild intermittent asthma with status asthmaticus; L20.82 Flexural eczema; K21.9 Gastro-esophageal reflux disease without esophagitis; M19.90 Unspecified osteoarthritis, unspecified site; I10 Essential (primary) hypertension; R26.2 Difficulty in walking, not elsewhere classified; Z99.89 Dependence on other enabling machines and devices; Z91.5 Personal history of self-harm
CPT/HCPCS: 36415; 80053; 81003; 84132; 85027; 86593; 93005; 93010